=== PATIENT | male | born 1955 | race Two or more races ===

== ENCOUNTER 2017-03-05 07:22 | Day surgery (SDC) | payer OTHER ==
[2017-03-05] VITALS (7 sets, daily range): BP systolic 129–150; BP diastolic 71–82; PULSE 62–77; RESP 14–18; Ht 166.4 cm; Wt 77.4 kg
[~2017-03-05] VITALS: Ht 166.4 cm; Wt 77.4 kg
[~2017-03-05 07:22] MED LIST: ACAR50TA PO; ACET-2158 PO; ATOR20TA38 PO; CEPH500C PO; GABA300C16 PO; HYDR-3498 PO; MELO-109 PO; METF1000 PO; OFLO5DRO46 LEFT EYE; OMEP20CA16 PO; RANI150T9 PO
[2017-03-05] MEDS ORDERED: METO25TA7 PO (08:18)
[2017-03-05] MEDS ORDERED: PIOG15TA4 PO (08:18)
[2017-03-05] MEDS ORDERED: ASPI-664 PO (08:18)
[2017-03-05] MEDS ORDERED: MELO-110 PO (08:19)
[2017-03-05] MEDS ORDERED: ATOR10TA65 PO (08:19)
[2017-03-05] MEDS ORDERED: ISOS30TA5 PO (08:20)
[2017-03-05] MEDS ORDERED: SOD CHLORIDE 0.9% 1,000 ML IV SCH ×2 (08:30→11:22)
[2017-03-05 08:44] LABS: BASOPHIL # 0.1 10^3/ul (0.0-0.1); BASOPHILS % 1.2 % (0.0-2.0); EOSINOPHILS # 0.3 10^3/ul (0.0-0.5); EOSINOPHILS % 4.9 % (0.0-7.0); HEMATOCRIT 43.7 % (42.0-52.0); HEMOGLOBIN 14.3 g/dl (14.0-18.0); LYMPHOCYTES # 1.9 10^3/ul (0.8-2.9); LYMPHOCYTES % 29.2 % (15.0-51.0); MEAN CORPUSCULAR HEMOGLOBIN 29.4 pg (29.0-33.0); MEAN CORPUSCULAR HGB CONC 32.7 g/dl (32.0-37.0); MEAN CORPUSCULAR VOLUME 89.9 fl (82.0-101.0); MEAN PLATELET VOLUME 10.6 fl (7.4-10.4); MONOCYTE # 0.7 10^3/ul (0.3-0.9); NEUTROPHILS % 54.4 % (39.0-77.0); PLATELET COUNT 172 10^3/UL (140-415); RED BLOOD COUNT 4.86 10^6/ul (4.70-6.10); RED CELL DISTRIBUTION WIDTH 11.4 % (11.5-14.5); WHITE BLOOD COUNT 6.5 10^3/ul (4.8-10.8)
[2017-03-05 08:47] LABS: INR 1.03; PROTIME 13.5 Sec (12.2-14.2); PT RATIO 1.1
[2017-03-05 08:48] LABS: PARTIAL THROMBOPLASTIN TIME 26.9 Sec (25.0-35.0)
[2017-03-05 08:54] LABS: CALCIUM 9.5 mg/dl (8.4-10.2); POTASSIUM 4.2 mmol/L (3.5-5.1)
[2017-03-05] MEDS ORDERED: VERAPAMIL 5 MG INJ ONE (09:10)
[2017-03-05] MEDS ORDERED: LIDOCAINE 100 MG SYRINGE ONE (09:10)
[2017-03-05] MEDS ORDERED: NITROGLYCERIN (IC) 100 MCG/ML INJ ONE (09:10)
[2017-03-05] MEDS ORDERED: IODIXANOL LOCM 100 ML BTL ONE (09:10)
[2017-03-05] MEDS ORDERED: FENTAnyl 50 MCG/ML VIAL ONE (09:11)
[2017-03-05] MEDS ORDERED: MIDAZOLAM 1 MG/ML 2 ML INJ ONE (09:11)
[2017-03-05] MEDS ORDERED: HEPARIN 1000 UNITS/ML 10 ML INJ ONE (09:11)
[2017-03-05] MEDS ORDERED: AL HYDROX/MG HYDROX/SIMETH 30 ML CUP PO PRN (11:30)
[2017-03-05] MEDS ORDERED: ONDANSETRON 4 MG INJ IV PRN (11:30)
[2017-03-05] MEDS ORDERED: ACETAMINOPHEN 325 MG TAB PO PRN (11:30)
--- NOTE | 2017-03-05 11:32 | OPR ---
Date/Time of Note Date/Time of Note DATE: 03/05/17 TIME: 11:26 Operative Report Procedure Date: Mar 05, 2017 Preoperative Diagnosis Chest pain Abnormal stress test Postoperative Diagnosis Coronary artery disease, moderate Operation Performed Left heart catheterization Right and left coronary angiogram Interpretation and supervision of right left coronary angiogram iFR of mid LAD Left ventricular pressure measurements Conscious sedation Right radial artery approach Surgeon: Meet Tran DO Anesthesia Type: other (Conscious sedation) Estimated Blood Loss: minimal Complications: no Pt Condition Post Procedure: stable Disposition: PACU Indications Abnormal stress test, chest pain Operative\Procedure Findings Hemodynamics LV pressure 140/80 with EDP of 13 Aortic pressure on pullback 139/78 IFR result of the mid LAD 0.92, nonsignificant stenosis Coronary anatomy Left main is a large caliber vessel with no significant disease LAD is a medium to large caliber vessel with a mid 40-50% stenosis and distal 30 % stenosis Circumflex is a medium vessel and dominant with a proximal 20% stenosis, mid 20 % stenosis, distal PDA is a small caliber vessel less than 2 mm with 60% distal stenosis. OM1 is a small caliber vessel of 1.5 mm with 60% proximal stenosis RCA is a small caliber vessel and nondominant with mid 20% stenosis Procedure Description The patient was brought to the Manager Therapy after informed consent. Patient was prepped and draped as per protocol. Right radial access was obtained and a 5/6 Haitian sheath was used in the radial artery. A 5 Haitian Soham catheter was used to engage the RCA. We next used a 6 Haitian JL 3.0 catheter to engage the left main and angiogram was performed. The catheter then fell in the left ventricle and pressure measures were obtained as well as pullback. Given the disease in the mid LAD, iFR was planned to be performed. Heparin was used for anticoagulation. An XB LAD 3.0 guide catheter was used. The lesion was crossed with the FFR wire and iFR was performed. Results were 0.92 which is not significant. Patient did have disease in the distal PDA but was a small vessel as well as disease in the obtuse marginal which was also a small vessel. All catheters and wires removed. There was no immediate complications. Findings were discussed in detail with the patient, daughter and . Meet Tran DO Mar 05, 2017 11:32
--- NOTE | 2017-03-05 11:33 | PDOCDIS ---
Discharge Instructions CONDITION Patient Condition: Good HOME CARE INSTRUCTIONS: Diet Instructions: Low Fat /Cholesterol ACTIVITY: Activity Restrictions: Slowly Increase Activity Avoid heavy lifting (Not lift more than 5 pounds with right arm for 3 days) Do not Drive (1 day) OTHER ORDERS: Other Orders: Hold metformin until March 08 Meet Tran DO Mar 05, 2017 11:33
== END 2017-03-05 18:54 | disposition home or self-care (01) ==
LOC: SDS 07:22
PROVIDERS: ATTEND Internal Medicine Cardiovascular Disease
DX: I25.10 Atherosclerotic heart disease of native coronary artery without angina pectoris (principal); R94.39 Abnormal result of other cardiovascular function study
CPT/HCPCS: 80048; 82962; 85025; 85610; 85730; 93458; C1769; C1887; J1644; J2001; J2250; J3010; Q9967; Z7610

== ENCOUNTER 2018-10-02 09:04 | Observation (INO) | payer OTHER ==
[2018-10-02] VITALS (13 sets, daily range): BP systolic 112–170; BP diastolic 67–115; PULSE 68–91; RESP 11–16; Ht 165.1 cm; Wt 78.4 kg
[~2018-10-02] VITALS: Ht 165.1 cm; Wt 78.4 kg
[~2018-10-02 09:04] MED LIST changes: -ACET-2158 PO; +ASPI81TA52 PO; +ATOR10TA65 PO; -ATOR20TA38 PO; -CEPH500C PO; -HYDR-3498 PO; +ISOS30TA67 PO; -MELO-109 PO; +MELO15TA30 PO; -METF1000 PO; +METO-335 PO; -OFLO5DRO46 LEFT EYE; +PIOG15TA12 PO; +RANI150T35 PO; -RANI150T9 PO; +SOD CHLORIDE 0.9% 1,000 ML IV SCH
[2018-10-02] MEDS ORDERED: ENAL5TAB PO (10:10)
[2018-10-02] MEDS ORDERED: MTF1000T PO (10:10)
[2018-10-02] MEDS ORDERED: ERGO500013 PO (10:10)
[2018-10-02] MEDS ORDERED: NITROGLYCERIN (IC) 100 MCG/ML INJ ONE ×3 (10:33→12:25)
[2018-10-02] MEDS ORDERED: VERAPAMIL 5 MG INJ ONE (10:33)
[2018-10-02] MEDS ORDERED: LIDOCAINE 1% (MDV) 20 ML INJ ONE (10:33)
[2018-10-02] MEDS ORDERED: HEPARIN 1000 UNITS/ML 10 ML INJ ONE ×2 (10:33→12:27)
[2018-10-02] MEDS ORDERED: IODIXANOL LOCM 100 ML BTL ONE ×3 (10:33→12:27)
[2018-10-02] MEDS ORDERED: MIDAZOLAM 1 MG/ML 2 ML INJ ONE ×3 (10:37→12:47)
[2018-10-02] MEDS ORDERED: FENTAnyl 50 MCG/ML VIAL ONE (10:37)
[2018-10-02] MEDS ORDERED: niCARdipine 25 MG INJ ONE (12:15)
[2018-10-02] MEDS ORDERED: ONDANSETRON 4 MG INJ ONE (12:15)
[2018-10-02] MEDS ORDERED: HYDROmorphONE 2 MG/ML SYG ONE (12:22)
[2018-10-02] MEDS ORDERED: ASPIRIN 325 MG TAB ONE (13:04)
[2018-10-02] MEDS ORDERED: CLOPIDOGREL 300 MG TAB ONE (13:04)
[2018-10-02] MEDS ORDERED: SOD CHLORIDE 0.9% 1,000 ML IV SCH (13:14)
[2018-10-02] MEDS ORDERED: ZOLPIDEM 5 MG TAB PO PRN (13:30)
[2018-10-02] MEDS ORDERED: ACETAMINOPHEN 325 MG TAB PO PRN (13:30)
[2018-10-02] MEDS ORDERED: DIAZEPAM 2 MG TAB PO PRN (13:30)
[2018-10-02] MEDS ORDERED: OXYCODONE/ACETAMINOPHEN (5/325) TAB PO PRN (13:30)
[2018-10-02] MEDS ORDERED: AL HYDROX/MG HYDROX/SIMETH 30 ML CUP PO PRN (13:30)
--- NOTE | 2018-10-02 13:30 | OPR ---
Date/Time of Note Date/Time of Note DATE: 10/02/18 TIME: 13:19 Operative Report Procedure Date: Oct 02, 2018 Preoperative Diagnosis Unstable angina Abnormal stress test Postoperative Diagnosis Obstructive coronary artery disease Operation/Procedure Performed Left heart catheterization Right and left coronary angiogram Interpretation and supervision of right and left coronary angiogram Complex PCI of the left PDA with stenting with a 2.25 x 18 mm and 2.25 x 12 mm resolute Murali drug-eluting stents iFR of the LAD Left ventricular pressure measurements Right radial artery approach Conscious sedation Surgeon see signature line Professor Computer [employer] Director staff Anesthesia Type: MAC Estimated Blood Loss: minimal Transfusion none Specimen None Grafts/Implants none Complications none Pt Condition Post Procedure: stable Procedure Description Coronary findings Left main is large caliber vessel with no significant disease LAD is a medium caliber vessel with a mid 50% stenosis The circumflex is a medium caliber vessel and dominant. OM1 is a small caliber vessel with ostial to proximal severe diffuse disease. Left PDA with a mid 90% calcified stenosis RCA is a small caliber vessel and nondominant with mild diffuse disease Hemodynamics LV pressure 111/1 with an EDP of 8 Aortic pressure 105/57 Description of procedure Patient brought to the [facility] after informed consent. Patient prepped and draped as per protocol. Right radial artery access was obtained and a 5/6 Zimbabwean sheath was placed. A 5 Zimbabwean JR4 diagnostic catheter was used to do an angiogram of the nondominant RCA. We next went in with a VL 3.06 Zimbabwean guide for the left system given known history of lesions. Patient with worsening stenosis in the PDA lesion. Heparin was used for anticoagulation. The lesion was crossed with a run through wire. Of note, even with catheter engagement, patient with chest discomfort, multiple angiograms done with no evidence of dissection. We were unable to predilate the lesion even with a director translation 1.2 balloon. We tried a guide liner without success. We next used a Turnpike spiral and was able to cross the lesion. Once again we were unable to get a 1.2 director translation balloon down. We then used a BMW wire for a collin wire and then was able to get a 1.2 director translation balloon down. Serial inflations were performed and then we upsized to a 2.0 balloon with serial inflations. Of note, with every balloon inflation, patient with severe chest discomfort. Multiple doses of Cardene and nitroglycerin were given. We then stented the lesion with a 2.25 x 18 mm Medtronic Murali drug-eluting stent. This was postdilated high-pressure with the stent delivery system balloon. After stent placement and doses of n itroglycerin and Cardene, chest discomfort resolved. Patient also with moderate disease in the LAD. We decided to do further in vestigation. A JL 3.0 6 Zimbabwean guide catheter was used. An IFR wire was used to cross the lesion. Results of 0.92 which is not significant for hemodynamically significant lesion. On image taking, we did notice an eccentric stenosis in our PDA, proximal to our previously placed stent which was approximately 80%. We did give Cardene and nitroglycerin without resolution. We then used our IFR wire to go into the PDA. That lesion was directly stented with a 2.25 x 12 mm Murali drug-eluting stent. The region of overlap was postdilated at high pressure with the stent delivery system balloon. As mentioned, with catheter engagement every time, patient with chest discomfort, once catheter was disengaged from left main, chest discomfort improved and residual at the end. All catheters and wires removed, there was no immediate complications. This was a complex case requiring multiple wires, a FRONT OFFICE REPRESENTATIVE crossing device, multiple stents and multiple doses of nitroglycerin and Cardene. Recommendations Aggressive medical management, dual antiplatelet therapy for minimum of 1 year to maintain stent patency. Meet Tran DO Oct 02, 2018 13:30
[2018-10-02] MEDS ORDERED: DEXTROSE 50% 50 ML SYRINGE IV PRN ×2 (14:00)
[2018-10-02] MEDS ORDERED: GLUCOSE GEL 15 GRAM TUBE PO PRN ×2 (14:00)
[2018-10-02] MEDS ORDERED: GLUCAGON 1 MG INJ IM PRN (14:00)
[2018-10-02] MEDS ORDERED: GLUCOSE GEL 15 GRAM TUBE BUCCAL PRN (14:00)
[2018-10-02] MEDS: morphine 2 MG INJ IV PRN ×2 (14:51→19:42)
[2018-10-02] MEDS: ONDANSETRON 4 MG INJ IV PRN ×2 (14:51→18:13)
[2018-10-02] MEDS: INSULIN ASPART [NOVOLOG] 3 ML PEN SC SCH ×2 (17:35→21:00)
--- NOTE | 2018-10-02 18:50 | RADRPT ---
Vent Rate: 81 bpm RR Interval: 0 msec NV Interval: 148 msec QRS Duration: 80 msec QT Interval: 354 msec QTC Interval: 411 msec P-R-T [place]: 50 - 25 - 41 degrees Normal sinus rhythm Normal ECG Electronically Signed By: Sunday Mckeon
--- NOTE | 2018-10-02 18:52 | RADRPT ---
Vent Rate: 66 bpm RR Interval: 0 msec MO Interval: 148 msec QRS Duration: 80 msec QT Interval: 362 msec QTC Interval: 379 msec P-R-T [place]: 65 - 44 - 49 degrees Normal sinus rhythm Normal ECG Electronically Signed By: Sunday Mckeon
[2018-10-02] MEDS ORDERED: hydrALAzine 20 MG INJ IV PRN (21:00)
[2018-10-02] MEDS ORDERED: GABAPENTIN 300 MG CAP PO SCH (21:00)
[2018-10-03] VITALS (19 sets, daily range): BP systolic 110–144; BP diastolic 59–96; PULSE 65–107; RESP 9–27
[2018-10-03] MEDS: morphine 2 MG INJ IV PRN ×2 (05:24→07:45)
[2018-10-03] MEDS: INSULIN ASPART [NOVOLOG] 3 ML PEN SC SCH ×2 (07:35→12:13)
[2018-10-03] MEDS ORDERED: CLOPIDOGREL 75 MG TAB PO SCH (09:00)
[2018-10-03] MEDS ORDERED: ASPIRIN (EC) 81 MG TAB PO SCH (09:00)
--- NOTE | 2018-10-03 10:42 | CONS ---
Assessment/Plan Assessment/Plan Hospital Course (Demo Recall) Unstable angina status post PCI to PDA 10/02/2018 CAD Diabetes Hypertension -Patient presented for elective cardiac catheterization secondary to chest discomfort. Patient found to have severe lesion in PDA status post 2 drug- eluting stents -Of note during cardiac catheterization, even with catheter engagement as well as contrast injection, patient with complaint of chest discomfort. He continues to complain of chest discomfort postprocedure. His discomfort is sharp, worse with coughing. Also complains of dizziness with standing up and with head movements. -Orthostatic blood pressure measurements were obtained and as per nursing staff they were unremarkable -ECG postprocedure with no significant abnormalities. Overall heart rate trend on telemetry has been in the mid 60s-80s. -The etiology of our patient's symptoms is unclear. I would check an echocardiogram to rule out any pericardial effusion. I will give further IV fluids even though they have been given overnight. -There is a possibility of post PCI pericarditis. His chest discomfort is worse with coughing. If echocardiogram with no significant abnormalities, we could use a trial of anti-inflammatories. Consultation Date/Type/Reason Admit Date/Time Oct 02, 2018 at 13:14 Initial Consult Date Type of Consult Cardiology Date/Time of Note DATE: 10/03/18 TIME: 10:35 24 HR Interval Summary Free Text/Dictation Patient complains of chest pain, dizziness and overall not feeling well since cardiac catheterization yesterday. Complains of dizziness with standing and also with head movements. He denies shortness of breath. His chest discomfort is worse with coughing. Exam/Review of Systems Vital Signs Vitals Vital Signs Date Temp Pulse Resp B/P (MAP) Pulse Ox O2 O2 Flow FiO2 Time Delivery Rate 10/03/18 76 08:00 10/03/18 98.6 17 139/72 94 Room Air 08:00 (94) 10/03/18 3.0 03:00 Intake and Output 10/02/18 10/02/18 10/03/18 1515:00 23:00 07:00 IntakeIntake Total 275 ml 1050 ml 575 ml OutputOutput Total 400 ml 900 ml BalanceBalance 275 ml 650 ml -325 ml Exam Constitutional: alert, oriented (Sitting in chair, family at bedside) Head: normocephalic Respiratory: clear to auscultation, normal air movement Cardiovascular: regular rate and rhythm (S1-S2 heard) Gastrointestinal: soft, non-tender, bowel sounds Extremities: other (No edema, right wrist is soft, +2 radial artery pulse, no hematoma) Labs Result Diagram: 10/03/1852110/03/18521 Results 24hrs Laboratory Tests Test 10/02/18 17:26 10/02/18 21:53 10/03/18 05:22 10/03/18 07:44 Bedside Glucose 136 161 116 White Blood Count 8.7 # Red Blood Count 4.42 L Hemoglobin 12.8 L Hematocrit 39.6 L Mean Corpuscular 89.6 Volume Mean Corpuscular 29.0 Hemoglobin Mean Corpuscular 32.3 Hemoglobin Concent Red Cell 11.6 Distribution Width Platelet Count 211 Mean Platelet Volume 9.7 Immature 0.200 Granulocytes % Neutrophils % 64.7 Lymphocytes % 22.2 Monocytes % 9.7 Eosinophils % 2.6 Basophils % 0.6 Nucleated Red Blood 0.0 Cells % Immature 0.020 Granulocytes # Neutrophils # 5.6 Lymphocytes # 1.9 Monocytes # 0.8 Eosinophils # 0.2 Basophils # 0.1 Nucleated Red Blood 0.0 Cells # Sodium Level 141 Potassium Level 4.3 Chloride Level 107 Carbon Dioxide Level 25 Anion Gap 9 Blood Urea Nitrogen 17 Creatinine 0.92 Est Glomerular > 60 Filtrat Rate mL/min Glucose Level 110 Calcium Level 9.4 Medications Medications Current Medications Aspirin (Halfprin) 81 mg DAILY PO Last administered on 10/03/18at 09:23; Admin Dose 81 MG; Start 10/03/18 at 09:00 Clopidogrel Bisulfate (plaVIX) 75 mg DAILY PO Last administered on 10/03/18at 09:23; Admin Dose 75 MG; Start 10/03/18 at 09:00 Acetaminophen (Tylenol Tab) 650 mg Q4H PRN PO PAIN; Start 10/02/18 at 13:30 Oxycodone/ Acetaminophen (Percocet (5/ 325)) 1 tab Q4H PRN PO PAIN; Start 10/02/18 at 13:30 Morphine Sulfate (morphine) 1 mg Q1H PRN IV PAIN Last administered on 10/03/18at 07:45; Admin Dose 1 MG; Start 10/02/18 at 13:30 Diazepam (Valium) 2 mg Q6H PRN PO RESTLESSNESS; Start 10/02/18 at 13:30 Zolpidem Tartrate (Ambien) 5 mg HS MAY REPEAT X 1 PRN PO INSOMNIA Last administered on 10/02/18at 21:51; Admin Dose 5 MG; Start 10/02/18 at 13:30 Al Hydrox/Mg Hydrox/Simethicone (Mag-Al Plus) 30 ml Q4H PRN PO GASTROINTESTINAL UPSET; Start 10/02/18 at 13:30 Ondansetron HCl (Zofran Inj) 4 mg Q4H PRN IV NAUSEA AND/OR VOMITING Last administered on 10/02/18at 18:13; Admin Dose 4 MG; Start 10/02/18 at 13:30 Insulin Aspart (Novolog Insulin Pen) NOVOLOG *MILD* ALGORITHM WITH MEALS BEDTIME SC ; Start 10/02/18 at 17:35 Miscellaneous Information 1 ea NOTE XX ; Start 10/02/18 at 14:00 Glucose (Glutose) 15 gm Q15M PRN PO DECREASED GLUCOSE; Start 10/02/18 at 14:00 Glucose (Glutose) 22.5 gm Q15M PRN PO DECREASED GLUCOSE; Start 10/02/18 at 14:00 Dextrose (D50w Syringe) 25 ml Q15M PRN IV DECREASED GLUCOSE; Start 10/02/18 at 14:00 Dextrose (D50w Syringe) 50 ml Q15M PRN IV DECREASED GLUCOSE; Start 10/02/18 at 14:00 Glucagon (Glucagen) 1 mg Q15M PRN IM DECREASED GLUCOSE; Start 10/02/18 at 14:00 Glucose (Glutose) 15 gm Q15M PRN BUCCAL DECREASED GLUCOSE; Start 10/02/18 at 14:00 Gabapentin (Neurontin) 300 mg QHS PO Last administered on 10/02/18at 21:51; Admin Dose 300 MG; Start 10/02/18 at 21:00 Hydralazine HCl (Apresoline) 10 mg Q6H PRN IV ELEVATED BLOOD PRESSURE; Start 10/02/18 at 21:00 Meet Tran DO Oct 03, 2018 10:42
[2018-10-03] MEDS ORDERED: SOD CHLORIDE 0.9% 500 ML IV ONE (11:00)
--- NOTE | 2018-10-03 12:15 | RADRPT ---
Echocardiogram Report Patient Name: TRISTIN VERAMPatient ID: [id number] : 1955 (63y 5m)Study Date: 10/03/2018 10:41:24 AM Gender: MAccession #: [id number] Tech: Robby Madrigal JS Location: [facility] Ref.Physician: MEET CHOW Height(Cm): BSA: Weight(Kg): Quality: AdequateAccount #: Procedures: Echocardiographic Report: Transthoracic echocardiogram with complete 2D, M-Mode, and doppler examination. Indications: Chest Pain, and Coronary Artery Disease. Measurements: 2D/M Mode Doppler Measurement Value Normal Range Measurement Value Normal Range LVIDd 2D 4.4 [ 4.2 - 5.8 ] cm AV Peak [place]gil 1.8 [ 100.0 - 170.0 ] cm/sec LVIDs 2D 2.5 [ 2.5 - 4.0 ] cm AV Peak PG 12.0 [ 2.0 - 9.0 ] mmHg LVPWd 2D 1.0 [ 0.6 - 1.0 ] cm LVOT Peak [place] 1.0 [ 70.0 - 110.0 ] cm/sec IVSd 2D 0.9 [ 0.6 - 1.0 ] cm LVOT Peak PG 4.0 [ 2.0 - 6.0 ] mmHg IVS/LVPW 2D 0.9 ratio MV E Peak [place]gil 0.6 [ 60.0 - 130.0 ] cm/sec AoR Diam 2D 2.6 [ 2.6 - 3.4 ] cm MV A Peak [place] 0.8 [ 100.0 - 120.0 ] cm/sec LA/Ao 2D 1 ratio MV E/A 0.7 [ 0.8 - 1.5 ] ratio LA Dimen 2D 3.4 [ 3.0 - 4.0 ] cm MV Decel Time 187 [ 104 - 258 ] msec Lat E` Virgil 0.1 [ 10.0 - 15.0 ] cm/sec Med E` Virgil 0.1 cm/sec MV E/A 0.7 [ 0.8 - 1.5 ] ratio TR Peak [place]gil 2.0 [ 100.0 - 280.0 ] cm/sec TR Peak PG 17.0 mmHg RVSP 20.0 [ 10.0 - 36.0 ] mmHg RA Pressure 3.0 mmHg Findings: Left Ventricle: Normal left ventricular systolic function. Normal left ventricular cavity size. Normal left ventricular wall thickness. Ejection fraction is visually estimated at 65 %. Tissue Doppler/Mitral Doppler indices are consistent with impaired relaxation (Stage I diastolic dysfunction). Right Ventricle: Normal right ventricular size. Normal right ventricular systolic function. Left Atrium: The left atrium is normal in size. Right Atrium: The right atrium is normal in size. Mitral Valve: Mitral valve leaflets appear mildly thickened. Mild mitral annular calcification. Trace mitral regurgitation. Aortic Valve: Normal appearance of the aortic valve. No significant aortic stenosis or insufficiency. Tricuspid Valve: Normal appearance of the tricuspid valve. Estimated peak PA systolic pressure 20 mmHg. There is trace tricuspid regurgitation. Pulmonic Valve: Pulmonic valve not well visualized. Pericardium: Normal pericardium with no significant pericardial effusion. Aorta: Normal aortic root. IVC: Normal size and normal respiratory collapse consistent with normal right atrial pressure. Conclusions: Normal left ventricular systolic function. Normal left ventricular cavity size. Normal left ventricular wall thickness. Ejection fraction is visually estimated at 65 %. Tissue Doppler/Mitral Doppler indices are consistent with impaired relaxation (Stage I diastolic dysfunction). Normal right ventricular size. Normal right ventricular systolic function. The left atrium is normal in size. The right atrium is normal in size. No significant valvular stenosis or regurgitation seen. Normal pericardium with no significant pericardial effusion. Electronically Signed By: Meet Chow 2018-10-03 12:15:25 PDT
[2018-10-03] MEDS ORDERED: CLOP75TA28 PO (12:17)
--- NOTE | 2018-10-03 12:18 | PDOCDIS ---
Discharge Instructions CONDITION [id number] Patient Condition: [id number] Good HOME CARE INSTRUCTIONS: [id number] Diet Instructions: [id number] Low Fat /Cholesterol ACTIVITY: [id number] Activity Restrictions: [id number] Slowly Increase Activity Avoid heavy lifting (More than 5 pounds with the right arm for 2 days) OTHER ORDERS: Other Orders: Hold metformin until Friday, October 05, 2018 Meet Tran DO Oct 03, 2018 12:18
[2018-10-03] MEDS ORDERED: IBUPROFEN 200 MG TAB PO ONE (14:00)
== END 2018-10-03 16:47 | disposition home or self-care (01) ==
LOC: SDS 09:04 → CCL 09:04 → ICU 13:14
PROVIDERS: ADMIT Internal Medicine Cardiovascular Disease; ATTEND Internal Medicine Cardiovascular Disease
DX: I25.110 Atherosclerotic heart disease of native coronary artery with unstable angina pectoris (principal); R94.39 Abnormal result of other cardiovascular function study; R42 Dizziness and giddiness
CPT/HCPCS: 80048; 82962; 85025; 85610; 85730; 87081; 93005; 93306; 93458; 93571; C1725; C1769; C1874; C1887; J1170; J1644; J1815; J2250; J2270; J2405; J3010; J7040; Q9967; Z7500; Z7610; 99217; G0378